=== PATIENT | male | born 1990 | race Two or more races ===

== ENCOUNTER 2025-06-18 14:54 | Emergency (ER) | payer MEDICAID, OTHER ==
[~2025-06-18] VITALS: Ht 180.3 cm; Wt 171.0 kg
[2025-06-18 14:55] VITALS: BP 116/63; PULSE 113; RESP 18; TEMP 98.2; O2SAT 93
[2025-06-18] MEDS ORDERED: FLUO0.05 TOP (15:19)
--- NOTE | 2025-06-18 15:20 | ED.PDOC ---
History of Present Illness(SKN HPI Comments A 35 YEAR OLD MALE PRESENTS TO THE ED WITH COMPLAINT OF RASH OF RIGHT KNEE. PATIENT STATES HE HAS HAD AN ITCHY RASH ON HIS RIGHT KNEE FOR THE PAST 3 DAYS. PATIENT DENIES FEVER, CHILLS, SHORTNESS OF BREATH, CHEST PAIN, ABDOMINAL PAIN, NAUSEA, VOMITING, HEADACHE, OR OTHER COMPLAINTS. NO OTHER SYMPTOMS OR MODIFYING FACTORS AT THIS TIME. PATIENT IS ALERT, ORIENTED X 4, AND HAS STEADY GAIT. Chief Complaint: Rash Time Seen by MD: 14:59 Primary Care Provider: NONE History of Present Illness: Nurses Notes, Medications, Allergies Allergies: Coded Allergies: NO KNOWN ALLERGIES (Unverified , 06/18/25) Home Meds Active Scripts Fluocinonide (Lidex) 0.05 % Cre, 1 APPLIC TOP BID, #30 GRAMS Prov:XAVIPATRICIA STEWART 06/18/25 Information Source: Patient Mode of Arrival: Ambulatory Severity: Mild Timing: Days Duration: Since onset, Days Prehospital treatment: None Location: Other (RIGHT KNEE) Mechanism: Spontaneous Onset Developed: Pruritus, Rash Occurence: Indoors Object: None Condition of Object: None Retained Foreign Body: No Wound Type: None Immunization Status of Animal: NA Tetanus: Unknown History of: None Associated Signs and Symptoms: Redness Past Medical History PAST MEDICAL HISTORY: Denies Surgical History: Denies all surgeries Family History Family History: Reviewed,noncontributory to illness, No family hx of Cancer, No family hx of DM, No family hx of Heart maria luisa, No family hx of HTN, No family hx ofKidney maria luisa, No family hx of Liver maria luisa, No family hx of Lung maria luisa, No family hx of Stroke Social History Smoker: Non-Smoker Alcohol: Denies ETOH Use Drugs: Denies Drug Use Lives In: Home Constitutional: denies: chills, diaphoresis, fatigue, fever, malaise, sweats, weakness, others EENTM: denies: blurred vision, double vision, ear bleeding, ear discharge, ear drainage, ear pain, ear ringing, eye pain, eye redness, hearing loss, mouth pain, mouth swelling, nasal discharge, nose bleeding, nose congestion, nose pain, photophobia, tearing, throat pain, throat swelling, voice changes, others Respiratory: denies: cough, hemoptysis, orthopnea, SOB at rest, shortness of breath, SOB with excertion, stridor, wheezing, others Cardiovascular: denies: chest pain, dizzy spells, diaphoresis, Dyspnea on exertion, edema, irregular heart beat, left arm pain, lightheadedness, palpitations, PND, syncope, others Gastrointestinal: denies: abdomen distended, abdominal pain, blood streaked bowels, constipated, diarrhea, dysphagia, difficulty swallowing, hematemesis, melena, nausea, poor appetite, poor fluid intake, rectal bleeding, rectal pain, vomiting, others Genitourinary: denies: burning, dysuria, flank pain, frequency, hematuria, incontinence, penile discharge, penile sore, pain, testicle pain, testicle swelling, urgency, others Neurological: denies: dizziness, fainting, headache, left sided numbness, left sided weakness, numbness, paresthesia, pre-existing deficit, right sided numbness, right sided weakness, seizure, speech problems, tingling, tremors, weakness, others Musculoskeletal: denies: back pain, gout, joint pain, joint swelling, muscle pain, muscle stiffness, neck pain, others Integumetry: reports: rash (RASH OF RIGHT KNEE); denies: bruises, change in color, change in hair/nails, dryness, laceration, lesions, lumps, wounds, others Allergic/Immunocompromised: reports: Itching; denies: Difficulty Healing, Frequent Infections, Hives, others Hematologic/Lymphatic: denies: anemia, blood clots, easy bleeding, easy bruising, swollen glands, others Endocrine: denies: excessive hunger, excessive sweating, excessive thirst, excessive urination, flushing, intolerance to cold, intolerance to heat, un explained weight gain, unexplained weight loss, others Psychiatric: denies: anxiety, bipolar disorder, depression, hopeless, panic disorder, schizophrenia, sleepless, suicidal, others All Other Systems: Reviewed and Negative Physical Exam General Appearance: No Apparent Distress, Obese HEENT: Normal ENT Inspection, PERRL/EOMI, Pharynx Normal, TMs Normal Neck: Full Range of Motion, Non-Tender, Normal, Normal Inspection Respiratory: Chest Non-Tender, Lungs Clear, No Accessory Muscle Use, No Re spiratory Distress, Normal Breath Sounds Cardiovascular: No Edema, No JVD, No Murmur, No Gallop, Normal Peripheral Pulses, Regular Rate/Rhythm Breast Exam: Deferred Gastrointestinal: No Organomegaly, Non Tender, No Pulsatile Mass, Normal Bowel Sounds, Soft Genitalia: Deferred Pelvic: Deferred Rectal: Deferred Extremities: No calf tenderness, Normal capillary refill, Normal inspection, Normal range of motion, Non-tender, No pedal edema Musculoskeletal : Apperance: Normal Neurologic: Alert, parking lot supervisor II-XII nml as Tested, No Motor Deficits, Normal Affect, Normal Mood, No Sensory Deficits Cerebellar Function: Normal Reflexes: Normal Skin: Dry, Normal Color, Rash (SMALL RED PAPULAR AND MACULAR SKIN RASH ON RIGHT ANTERIOR KNEE, NO TENDERNESS, SWELLING AND OPEN WOUND. ), Warm Peripheral Pulses: 2+ carotid (R), 2+ carotid (L) Lymphatic: No Adenopathy Was a procedure done? Was a procedure done?: No Differential Diagnosis (INTG) Differential Diagnosis: N/A Differential Diagnosis: Atopic dermatitis, Contact Dermatitis, Impetigo, Intertrigo, Tinea, Urticaria Differential Diagnosis: N/A Abscess: N/A Differential Diagnosis: Other X-Ray, Labs, Meds, VS Vital Signs Date Time Temp Pulse Resp B/P (MAP) Pulse Ox O2 Delivery O2 Flow Rate FiO2 06/18/25 14:55 98.2 113 18 116/63 93 98.2 X-Ray, Labs, Meds, VS Comment EXTERNAL MEDICAL RECORDS REVIEWED: [NONE] INDEPENDENT HISTORIANS: [NONE] SOCIAL DETERMINANTS OF HEALTH: [NONE] LABS ORDERED: NONE REVIEWED AND INTERPRETED RESULTS: NONE IMAGING ORDERED: NONE TREATMENTS ORDERED: NONE PROCEDURES PERFORMED: NONE CRITICAL CARE TIME: NONE I HAVE DISCUSSED THE PATIENT WITH THE ATTENDING PHYSICIAN DR. BROWNE AND HE AGREES WITH THE PATIENT'S PLAN OF CARE AND DISPOSITION. BASED ON HISTORY OF PRESENT ILLNESS, AND PHYSICAL EXAM, PATIENT WILL BE DISCHARGED HOME. DISCUSSED PLAN FOR DISCHARGE HOME WITH RX [LIDEX CREAM]. MEDICATION WARNINGS GIVEN. SHARED DECISION MAKING: PATIENT INSTRUCTED TO FOLLOW UP WITH PRIMARY CARE PROVIDER IN 1-2 DAYS FOR RE-EVALUATION OF SYMPTOMS. PATIENT VERBALIZES UNDERSTANDING TO RETURN TO ED FOR NEW OR WORSENING SYMPTOMS OR IF FOLLOW UP WITH PCP CANNOT BE OBTAINED. PATIENT FEELS COMFORTABLE GOING HOME AT THIS TIME. ALL QUESTIONS ADDRESSED AT TIME OF DISCHARGE. Time of 1ST Reevaluation: 15:23 Reevaluation 1ST: Improved Patient Education/Counseling: Diagnosis, Treatment, Need For Follow Up Family Education/Counseling: Diagnosis, Treatment, Need For Follow Up Medical Screening: No EMC Exist At This Time SEPSIS Sepsis Screen Date sepsis recognized/suspect: Jun 18, 2025 Time Sepsis recognized/suspect: 1457 Recent Procedure: No On Antibiotic Therapy: No Respiratory Rate >20: No Heart Rate >90: Yes Temp<36 C (96.8 F) or >38.3 C: No SBP <90 or MAP <65 mmHG: No New Acute Mental Status Change: No Is the patient on CPAP, BIPAP,: No Vital Signs Date Time Temp Pulse Resp B/P (MAP) Pulse Ox O2 Delivery O2 Flow Rate FiO2 06/18/25 14:55 98.2 113 18 116/63 93 98.2 Departure 1 Departure Time of Disposition: 15:40 Impression: Primary Impression: Contact dermatitis Qualified Codes: L25.9 - Unspecified contact dermatitis, unspecified cause Disposition: HOME / SELF CARE / HOMELESS Condition: Stable Additional Instructions: FOLLOW-UP WITH PCP IN 1 TO 2 DAYS. TAKE MEDICATIONS PRESCRIBED. RETURN TO ED FOR ANY NEW OR WORSENING SYMPTOMS. e-Prescriptions Fluocinonide (Lidex) 0.05 % Cre 1 APPLIC TOP BID, #30 GRAMS Prov: PATRICIA HURLEY 06/18/25 Discharged With: Self Critical Care Note Critical Care Time?: No Stability Stability form required: No I personally scribed for PATRICIA HURLEY ([email or web address]) on 06/18/25 at 15:20. Electronically submitted by Ton Do ([email or web address]). PATRICIA HURLEY Jun 18, 2025 15:20
== END 2025-06-18 15:24 | disposition home or self-care (01) ==
LOC: ER 14:54
DX: L25.9 Unspecified contact dermatitis, unspecified cause (principal)

== ENCOUNTER 2025-09-04 23:42 | Emergency (ER) | payer MEDICAID ==
[~2025-09-04] VITALS: Ht 180.3 cm; Wt 169.0 kg
[~2025-09-04 23:42] MED LIST: FLUO0.05 TOP
--- NOTE | 2025-09-05 00:34 | DVH ---
CLINICAL INDICATION: s/p fall injury TECHNIQUE: XYXY L SHOULDER 2+ VIEW XRAY COMPARISON: None FINDINGS/IMPRESSION: : Mildly displaced oblique or spiral type fracture of the mid left clavicular shaft. Mild apex superior angulation.
--- NOTE | 2025-09-05 01:44 | ED.PDOC ---
Back pain HPI HPI Comments Pt BIBA for c/o L shoulder pain s/p fall in the shower. Pt states he slipped, falling on his left side. Pt states limited ROM and unable to pick raise arm; able to make fist. Rates pain "9/10" to shoulder, and describes as "burning, throbbing" pain. Pt states he hit the side of his head during fall but denies LOC. Pt states pain radiates pain goes towards his collar bone. A&Ox4 Chief Complaint: Upper Extremity Time Seen by MD: 23:55 Reviewed Notes: Nurses Notes, Medications, Allergies Allergies: Coded Allergies: NO KNOWN ALLERGIES (Unverified , 06/18/25) Home Meds Active Scripts Tizanidine Hydrochloride (Tizanidine Hcl) 4 Mg Tab, 4 MG PO BID for 6 Days, #12 TAB Prov:LICO RIDDLE TECHNICAL ADJUSTER 09/05/25 Ibuprofen (Ibuprofen) 800 Mg Tab, 800 MG PO Q8HP PRN for 7 Days, #21 TAB Prov:LICO RIDDLE 09/05/25 Fluocinonide (Lidex) 0.05 % Cre, 1 APPLIC TOP BID, #30 GRAMS Prov:PATRICIA HURLEY 06/18/25 Information Source: Patient Mode of Arrival: EMS Past Medical History PAST MEDICAL HISTORY: Denies Surgical History: Denies all surgeries Family History Family History: Unknown Social History Smoker: Non-Smoker Alcohol: Denies ETOH Use Drugs: Denies Drug Use All Other Systems: Reviewed and Negative (SEE HPI) Physical Exam General Appearance: No Apparent Distress, Normal HEENT: Pharynx Normal Neck: Full Range of Motion, Non-Tender Respiratory: Lungs Clear, No Respiratory Distress, Normal Breath Sounds Cardiovascular: No Edema, No JVD, No Murmur, No Gallop, Normal Peripheral Pulses, Regular Rate/Rhythm Breast Exam: Deferred Gastrointestinal: Non Tender, Soft Genitalia: Deferred Pelvic: Deferred Rectal: Deferred Extremities: Normal capillary refill, Normal range of motion Musculoskeletal : Extremity Location: Clavicle (TENDERNESS PALPATED OVER MID LEFT CLAVICULAR SHAFT WITH LUMP NOTED STRENGTH SENSORY MOTION INTACT WITH MILD TO MODERATE DISCOMFORT) Apperance: Normal Neurologic: Alert, No Motor Deficits, Normal Affect, Normal Mood, No Sensory Deficits Cerebellar Function: Normal Reflexes: NOT DONE Skin: Dry, Normal Color, Warm Lymphatic: No Adenopathy Was a procedure done? Was a procedure done?: No Back Pain Differential Dx Differential Diagnosis: Fracture, Musculoskeletal Pain X-Ray, Labs, Meds, VS Vital Signs Date Time Temp Pulse Resp B/P (MAP) Pulse Ox O2 Delivery O2 Flow Rate FiO2 09/05/25 02:09 98.7 89 16 116/52 (73) 97 98.7 09/05/25 02:09 89 16 97 09/04/25 23:51 98.5 91 18 123/76 97 98.5 Current Medications Medications (Trade) Dose Ordered Sig/Delia Route Start Time Stop Time Status Last Admin Ketorolac Tromethamine (Toradol Injection) 60 mg ONCE ONCE IM 09/05/25 00:45 09/05/25 00:46 DC 09/05/25 02:15 Acetaminophen/ Hydrocodone Bitart ([place] 5/325MG Tab) 1 tab ONCE ONCE PO 09/05/25 00:45 09/05/25 00:46 DC 09/05/25 02:15 X-Ray, Labs, Meds, VS Comment FINDINGS/IMPRESSION: : Mildly displaced oblique or spiral type fracture of the mid left clavicular shaft. Mild apex superior angulation. NOTE IMAGING FINDINGS ABOVE. PATIENT PLACED IN SLING SCRIPT TRIAL OF MUSCLE RELAXER AND ANTI-INFLAMMATORY ADVISED TAKE MEDICATIONS PRESCRIBED SIDE EFFECTS DISCUSSED ADVISED ON AKYE. ADVISED TO FOLLOW UP WITH PCP FOR REFERRAL TO ORTHO SURGEON FOR CONSULT AND EVALUATION. ADVISED TO KEEP THE SLING ON UNTIL SEEN BY ORTHO. ADVISED ON ER RETURN PRECAUTIONS, PT INDICATES UNDERSTANDING AND AGREE WITH DISCHARGE PLAN OF CARE. Images Reviewed?: Images reviewed and evaluated by me Time of 1ST Reevaluation: 23:55 Reevaluation 1ST: Unchanged Time of 2ND Reevaluation: 01:40 Reevaluation 2ND: Improved Patient Education/Counseling: Diagnosis, Treatment, Need For Follow Up Family Education/Counseling: No Family Present SEPSIS Sepsis Screen Date sepsis recognized/suspect: Sep 04, 2025 Time Sepsis recognized/suspect: 2345 Recent Procedure: No On Antibiotic Therapy: No Respiratory Rate >20: No Heart Rate >90: No Temp<36 C (96.8 F) or >38.3 C: No SBP <90 or MAP <65 mmHG: No New Acute Mental Status Change: No Is the patient on CPAP, BIPAP,: No Physician Orders L Shoulder 2+ View Xray (09/04/25 23:56) Apply Sling (09/05/25 00:43) Vital Signs Date Time Temp Pulse Resp B/P (MAP) Pulse Ox O2 Delivery O2 Flow Rate FiO2 09/05/25 02:09 98.7 89 16 116/52 (73) 97 98.7 09/05/25 02:09 89 16 97 09/04/25 23:51 98.5 91 18 123/76 97 98.5 Medications Medications Dose Ordered Sig/Delia Route Start Time Stop Time Status Last Admin Dose Admin Acetaminophen/ Hydrocodone Bitart 1 tab ONCE ONCE PO 09/05/25 00:45 09/05/25 00:46 DC 09/05/25 02:15 Ketorolac Tromethamine 60 mg ONCE ONCE IM 09/05/25 00:45 09/05/25 00:46 DC 09/05/25 02:15 Departure 1 Departure Time of Disposition: 01:42 Impression: Primary Impression: Fracture of left clavicle Qualified Codes: S42.025A - Nondisplaced fracture of shaft of left clavicle, initial encounter for closed fracture Disposition: 01 HOME / SELF CARE / HOMELESS Condition: Stable e-Prescriptions Tizanidine Hydrochloride (Tizanidine Hcl) 4 Mg Tab 4 MG PO BID for 6 Days, #12 TAB Prov: LICO RIDDLE 09/05/25 Ibuprofen (Ibuprofen) 800 Mg Tab 800 MG PO Q8HP PRN for 7 Days, #21 TAB Prov: LICO RIDDLE 09/05/25 Discharged With: Self Critical Care Note Critical Care Time?: No Stability Stability form required: No LICO RIDDLE Sep 05, 2025 01:44
[2025-09-05 02:09] VITALS: BP 116/52; PULSE 89; RESP 16; TEMP 98.7; O2SAT 97
[2025-09-05] MEDS: KETOROLAC TROMETH 60MG/2ML VIAL IM ONE (02:15)
[2025-09-05] MEDS: HYDROcodone-ACET 5/325MG TAB PO ONE (02:15)
[2025-09-05] MEDS ORDERED: IBUP-1456 PO (02:32)
[2025-09-05] MEDS ORDERED: TIZA-142 PO (02:32)
== END 2025-09-05 02:53 | disposition home or self-care (01) ==
LOC: EDBD 23:42 → ER 23:42
DX: S42.022A Displaced fracture of shaft of left clavicle, initial encounter for closed fracture (principal); Z79.899 Other long term (current) drug therapy; W01.0XXA Fall on same level from slipping, tripping and stumbling without subsequent striking against object, initial encounter; Y93.89 Activity, other specified; Y92.89 Other specified places as the place of occurrence of the external cause; Y99.8 Other external cause status
CPT/HCPCS: 29105; 73030; 96372; 99283; J1885